=== PATIENT | female | born 1940 | race Caucasian/White ===

== ENCOUNTER 2021-06-24 10:14 | Observation (INO) ==
[2021-06-24] MEDS ORDERED: Ondansetron 4 MG/2 ML VIAL IVP ONE (10:46)
[2021-06-24] MEDS ORDERED: 0.9 % Sodium Chloride 1,000 ML IVC ONE (10:46)
[2021-06-24] MEDS ORDERED: *HR* FentaNYL (PF) 100 MCG/2 ML VIAL IVP STA (10:46)
[2021-06-24 12:17] LABS: Hematocrit 36.9 % (35.3-44.9); Hemoglobin 12.4 g/dL (11.5-15.4); Mean Corpuscular HGB Conc 33.6 g/dL (31.6-35.5); Mean Corpuscular Hemoglobin 34.1 pg (28.0-33.3); Mean Corpuscular Volume 101.4 fL (83.0-100.0); Mean Platelet Volume 9.1 fL (9.4-12.4); Platelet Count 305 K/mcL (140-400); Red Blood Count 3.64 M/mcL (3.82-4.97); Red Cell Distribution Width 12.6 % (11.5-14.5); White Blood Count 4.1 K/mcL (4.3-11.1)
[2021-06-24 12:45] LABS: Alanine Aminotransferase 18 Units/L (7-52); Albumin 3.9 g/dL (3.5-5.7); Albumin/Globulin Ratio 1.5 (1.1-2.2); Alkaline Phosphatase 57 Units/L (34-104); Aspartate Amino Transferase 16 Units/L (13-39); BUN/Creatinine Ratio 23 (6-26); Bilirubin,Direct 0.1 mg/dL (0.0-0.2); Bilirubin,Indirect 0.3 mg/dL (0.0-1.0); Bilirubin,Total 0.4 mg/dL (0.3-1.0); Blood Urea Nitrogen 15 mg/dL (8-23); Calcium 8.6 mg/dL (8.6-10.3); Carbon Dioxide 27 mEq/L (23-29); Chloride 100 mEq/L (98-107); Globulin 2.6 g/dL (2.4-3.5); Glucose 102 mg/dL (70-105); Lipase 6 Units/L (11-82); Osmolality,Calculated 283 (280-300); Potassium 3.6 mEq/L (3.5-5.1); Sodium 136 mEq/L (136-145); Total Protein 6.5 g/dL (6.4-8.9); eGFR For African Americans > 60 (> 60); eGFR For Non-African Americans > 60 (> 60)
[2021-06-24] MEDS ORDERED: *HR* FentaNYL (PF) 100 MCG/2 ML VIAL IVP ONE ×2 (13:20→17:34)
[2021-06-24] MEDS ORDERED: Melatonin 3 MG TABLET PO PRN (13:31)
[2021-06-24] MEDS ORDERED: Naloxone 0.4 MG/ML INJ IVP PRN (13:31)
[2021-06-24] MEDS ORDERED: Ondansetron 4 MG/2 ML VIAL IVP PRN (13:31)
[2021-06-24] MEDS ORDERED: Chloraseptic Spray 177 ML BOTTLE MM PRN (17:09)
[2021-06-24] MEDS: Ringers Solution, Lactated 1,000 ML IVC SCH (17:40)
[2021-06-24] MEDS: Pantoprazole 40 MG VIAL IVP SCH (17:40)
[2021-06-24] MEDS ORDERED: Acetaminophen IV 1,000 MG/100 ML BAG IVPB ONE (21:21)
[2021-06-24] MEDS: *HR* Heparin 5,000 UNIT/ML VIAL SQ SCH (21:40)
[2021-06-25 02:43] LABS: Basophils % 0.7 %; Eosinophils % 0.9 %; Hematocrit 32.4 % (35.3-44.9); Hemoglobin 10.8 g/dL (11.5-15.4); Immature Granulocytes % 0.2 % (0-4); Lymphocytes # 1.8 K/mcL (0.6-4.6); Lymphocytes % 41.2 %; Mean Corpuscular HGB Conc 33.3 g/dL (31.6-35.5); Mean Corpuscular Hemoglobin 34.6 pg (28.0-33.3); Mean Corpuscular Volume 103.8 fL (83.0-100.0); Mean Platelet Volume 9.2 fL (9.4-12.4); Monocytes # 0.7 K/mcL (0.0-1.3); Monocytes % 15.3 %; Neutrophils # 1.8 K/mcL (1.6-8.9); Platelet Count 295 K/mcL (140-400); Red Blood Count 3.12 M/mcL (3.82-4.97); Red Cell Distribution Width 12.8 % (11.5-14.5); Segmented Neutrophils % 41.7 %; White Blood Count 4.4 K/mcL (4.3-11.1)
[2021-06-25] MEDS: Ringers Solution, Lactated 1,000 ML IVC SCH (02:43)
[2021-06-25 03:00] LABS: BUN/Creatinine Ratio 17 (6-26); Blood Urea Nitrogen 9 mg/dL (8-23); Calcium 8.1 mg/dL (8.6-10.3); Carbon Dioxide 26 mEq/L (23-29); Chloride 104 mEq/L (98-107); Glucose 102 mg/dL (70-105); Magnesium 1.7 mg/dL (1.6-2.6); Osmolality,Calculated 287 (280-300); Potassium 3.5 mEq/L (3.5-5.1); Sodium 139 mEq/L (136-145); eGFR For African Americans > 60 (> 60); eGFR For Non-African Americans > 60 (> 60)
[2021-06-25] MEDS: *HR* Heparin 5,000 UNIT/ML VIAL SQ SCH ×3 (05:11→20:38)
[2021-06-25] MEDS: Ketorolac 30 MG/ML VIAL IM PRN ×3 (05:11→20:42)
[2021-06-25] MEDS: Pantoprazole 40 MG VIAL IVP SCH (09:22)
[2021-06-25] MEDS: amLODIPine 5 MG TABLET PO SCH (09:31)
[2021-06-25] MEDS ORDERED: 0.9 % Sodium Chloride 1,000 ML IVC SCH (11:15)
[2021-06-26] MEDS ORDERED: *HR* Dextrose 50 % in Water (Syg) 50 ML SYRINGE IVP ONE (05:13)
[2021-06-26] MEDS: *HR* Heparin 5,000 UNIT/ML VIAL SQ SCH ×3 (05:21→20:25)
[2021-06-26] MEDS: amLODIPine 5 MG TABLET PO SCH (08:30)
[2021-06-26] MEDS: Pantoprazole 40 MG VIAL IVP SCH (08:31)
[2021-06-26 11:05] LABS: BUN/Creatinine Ratio 11 (6-26); Blood Urea Nitrogen 6 mg/dL (8-23); Calcium 8.9 mg/dL (8.6-10.3); Carbon Dioxide 24 mEq/L (23-29); Chloride 101 mEq/L (98-107); Glucose 79 mg/dL (70-105); Osmolality,Calculated 287 (280-300); Potassium 2.9 mEq/L (3.5-5.1); Sodium 140 mEq/L (136-145); eGFR For African Americans > 60 (> 60); eGFR For Non-African Americans > 60 (> 60)
[2021-06-26] MEDS: Acetaminophen 325 MG TABLET PO PRN ×2 (12:16→20:24)
[2021-06-26] MEDS ORDERED: Loratadine 10 MG TABLET PO SCH (17:45)
[2021-06-26] MEDS: Loratadine 10 MG TABLET PO SCH (17:47)
[2021-06-27] MEDS: *HR* Heparin 5,000 UNIT/ML VIAL SQ SCH (05:11)
[2021-06-27 06:13] LABS: Basophils # 0.1 K/mcL (0.0-0.2); Basophils % 0.7 %; Eosinophils # 0.1 K/mcL (0.0-0.6); Eosinophils % 1.7 %; Hematocrit 32.4 % (35.3-44.9); Hemoglobin 10.5 g/dL (11.5-15.4); Immature Granulocytes % 0.3 % (0-4); Lymphocytes # 2.2 K/mcL (0.6-4.6); Lymphocytes % 30.7 %; Mean Corpuscular HGB Conc 32.4 g/dL (31.6-35.5); Mean Corpuscular Hemoglobin 33.1 pg (28.0-33.3); Mean Corpuscular Volume 102.2 fL (83.0-100.0); Monocytes # 0.8 K/mcL (0.0-1.3); Monocytes % 11.7 %; Neutrophils # 3.8 K/mcL (1.6-8.9); Platelet Count 329 K/mcL (140-400); Red Blood Count 3.17 M/mcL (3.82-4.97); Segmented Neutrophils % 54.9 %
[2021-06-27 06:36] LABS: BUN/Creatinine Ratio 10 (6-26); Blood Urea Nitrogen 5 mg/dL (8-23); Calcium 8.3 mg/dL (8.6-10.3); Carbon Dioxide 26 mEq/L (23-29); Chloride 103 mEq/L (98-107); Glucose 98 mg/dL (70-105); Osmolality,Calculated 283 (280-300); Sodium 138 mEq/L (136-145); eGFR For African Americans > 60 (> 60); eGFR For Non-African Americans > 60 (> 60)
[2021-06-27 07:36] VITALS: O2SAT 94
[2021-06-27] MEDS: Loratadine 10 MG TABLET PO SCH (07:36)
[2021-06-27] MEDS: amLODIPine 5 MG TABLET PO SCH (07:36)
[2021-06-27] MEDS: Acetaminophen 325 MG TABLET PO PRN (07:36)
[2021-06-27] MEDS: Pantoprazole 40 MG VIAL IVP SCH (07:36)
[2021-06-27 11:06] VITALS: BP 133/78; PULSE 81; TEMP 98.5
== END 2021-06-27 11:45 | disposition home or self-care (01) ==
LOC: 3ANU 10:14 → EMEROOARM 10:14 → 3ANU 15:40
PROVIDERS: ADMIT Internal Medicine; ATTEND Internal Medicine